=== PATIENT | female | born 1950 | race Two or more races ===

== ENCOUNTER 2022-01-15 16:32 | Emergency (ER) | payer OTHER ==
[2022-01-15 16:51] VITALS: BMI 40.3
[2022-01-15] MEDS ORDERED: BEBTELOVIMAB (EUA) 175 MG/2 ML VIAL IVPUSH ONE (17:20)
[2022-01-15 18:45] VITALS: BP 119/56; PULSE 74; TEMP 98.1
== END 2022-01-15 18:53 | disposition home or self-care (01) ==
LOC: JCOVINFU 16:32 → JER 16:32 → JCOVINFU 18:53
DX: U07.1 COVID-19 (principal)
CPT/HCPCS: 99284-25; M0222; Q0222